=== PATIENT | male | born 1975 | race Caucasian/White ===

== ENCOUNTER 2017-03-11 20:29 | Emergency (ER) | payer OTHER ==
[2017-03-11 21:13] VITALS: BP 126/75
--- NOTE | 2017-03-11 23:30 | UC ---
Skin Complaint HPI - HPI Summary HPI Summary: 41 year old with left 4th toe with possible fungus and spot on the upper right chest with ringworm. no fever. - History of Current Complaint Chief Complaint: UCSkin Time Seen by Provider: 03/11/17 22:48 Stated Complaint: SKIN COMPLAINT Onset/Duration: Gradual Onset Pain Intensity: 0 Pain Scale Used: 0-10 Numeric Alleviating Factor(s): Nothing Associated Signs & Symptoms: Positive: Negative - Allergy/Home Medications Allergies/Adverse Reactions: Allergies Allergy/AdvReac Type Severity Reaction Status Date / Time No Known Allergies Allergy Verified 03/11/17 21:13 Home Medications: Home Medications Cetirizine* [ZyrTEC 10 MG TAB*] 10 mg PO DAILY PRN 03/11/17 [History Confirmed 03/11/17] Review of Systems Skin: Rash All Other Systems Reviewed And Are Negative: Yes PMH/Surg Hx/FS Hx/Imm Hx - Surgical History Surgical History: None - Family History Known Family History: Negative: Cardiac Disease - Social History Occupation: Employed Full-time Lives: With Family Alcohol Use: Rare Substance Use Type: None Smoking Status (MU): Never Smoked Tobacco Physical Exam Triage Information Reviewed: Yes Appearance: Well-Appearing, No Pain Distress, Ill-Appearing Vital Signs: Initial Vital Signs Temp 98.6 F 03/11/17 21:07 Pulse 72 03/11/17 21:07 Resp 12 03/11/17 21:07 BP 126/75 03/11/17 21:07 Pulse Ox 100 03/11/17 21:07 Vital Signs Reviewed: Yes Respiratory Exam: Normal Cardiovascular Exam: Normal Skin Exam: Normal Skin: Positive: Other - right upper chest with 1x1 cm red macular lesion with some mild central clearing and the 4th left toenail with yellow thickening present. Course/Dx - Diagnoses Provider Diagnoses: tinea corporis and left 4th toe with onychomycosis Discharge - Discharge Plan Condition: Good Disposition: HOME Prescriptions: Ciclopirox [Ciclopirox Nail Lacquer] 8 % EX QPM #1 wilfred Clotrimazole/Betamethasone* [Lotrisone Cream*] 1 applic TOPICAL BID #1 tube Patient Education Materials: Tinea Versicolor (ED) Referrals: No Primary Care Phys,NOPCP [Primary Care Provider] - If Needed Additional Instructions: You have a fungal toe nail infection that we are treating at this time with topical solution and if your symptoms are not improved then we advise to seek care with a vocational training instructor or family medicine doctor for further treatment
== END 2017-03-11 23:10 | disposition home or self-care (01) ==
LOC: UCCORT 20:29
DX: B35.4 Tinea corporis (principal); B35.1 Tinea unguium
CPT/HCPCS: 99201; G0463